=== PATIENT | male | born 1990 | race Caucasian/White ===

== ENCOUNTER 2018-06-03 12:48 | Emergency (ER) | payer MEDICAID ==
[~2018-06-03] VITALS: Ht 167.6 cm; Wt 99.8 kg
[2018-06-03] MEDS ORDERED: SODIUM CHLORIDE 0.9% 1,000 ML IV ONE ×2 (13:35)
[2018-06-03] MEDS ORDERED: PROCHLORPERAZINE EDISYLATE 5 MG/ML 2ML VIAL IV ONE (13:45)
[2018-06-03] MEDS ORDERED: LORazepam 2MG/ML-1ML VIAL IV ONE (13:45)
[2018-06-03 13:49] LABS: Basophils % (auto) 0.4 % (0.0-2.0); Eosinophils # (auto) 0.2 uL; Hemoglobin 13.5 g/dL (13.5-17.5)
[2018-06-03 13:51] LABS: Albumin 3.6 g/dL (3.4-5.0); BUN/Creatinine Ratio 21.7; Calcium 8.6 mg/dL (8.5-10.1)
[2018-06-03 13:53] LABS: Basophils # (auto) 0 uL; Eosinophils % (auto) 1.7 % (0.0-7.0); Hematocrit 40.7 % (41.0-53.0); Lymphocytes % (auto) 17.2 % (10.0-50.0); Mean Corpuscular Hemoglobin 25.6 pg (28.0-32.0); Mean Corpuscular Hgb Conc. 33.2 g/dL (32.0-36.0); Monocytes # (auto) 0.7 uL; Monocytes % (auto) 5.8 % (0.0-12.0); Neutrophils # (auto) 8.6 uL; Neutrophils % (auto) 74.9 % (37.0-80.0); Nucleated Red Blood Cells % 0.2 %; Platelet Count (auto) 338 10^3/uL (140-450); Red Blood Cells 5.28 10^6/uL (4.5-5.90); Red Cell Distribution Width 13.7 % (11.8-14.3); White Blood Cell 11.5 10^3/uL (4.4-10.8)
[2018-06-03 13:54] LABS: Bilirubin, Total 0.2 mg/dL (0.2-1.0); Total Protein 8.3 g/dL (6.4-8.2)
[2018-06-03] MEDS ORDERED: cefTRIAXone SOD 1,000 MG VL IM ONE (14:30)
[2018-06-03 16:54] VITALS: BP 123/64
== END 2018-06-03 15:56 | disposition home or self-care (01) ==
LOC: ER 12:48
DX: K52.9 Noninfective gastroenteritis and colitis, unspecified (principal); J18.9 Pneumonia, unspecified organism; F12.10 Cannabis abuse, uncomplicated; F17.210 Nicotine dependence, cigarettes, uncomplicated
CPT/HCPCS: 36415; 71046; 74176; 80053; 85025; 96361; 96372; 96374; 96375; 99284; J0696; J0780; J2060; J7030

== ENCOUNTER 2018-06-29 10:35 | Emergency (ER) | payer MEDICAID ==
[~2018-06-29] VITALS: Ht 175.3 cm; Wt 99.8 kg
[2018-06-29 10:37] VITALS: BP 131/84
== END 2018-06-29 11:08 | disposition left against medical advice (07) ==
LOC: ER 10:35
DX: G89.29 Other chronic pain (principal); M54.5 Low back pain; F17.210 Nicotine dependence, cigarettes, uncomplicated; F12.10 Cannabis abuse, uncomplicated; Z76.0 Encounter for issue of repeat prescription

== ENCOUNTER 2018-07-07 13:20 | Emergency (ER) | payer MEDICAID ==
[~2018-07-07] VITALS: Ht 175.3 cm; Wt 99.8 kg
[2018-07-07 14:06] VITALS: BP 121/77
[2018-07-07] MEDS ORDERED: LIDOCAINE 1% (LOCAL ANESTH.) PF 5ml SDV ID ONE (15:00)
[2018-07-07] MEDS ORDERED: BACITRACIN TOP OINT 1 UD PKG TOP ONE (15:00)
[2018-07-07] MEDS ORDERED: TETANUS-DIPTH-ACEL PERTUSSIS 0.5ML SYRG IM ONE (15:00)
== END 2018-07-07 15:44 | disposition home or self-care (01) ==
LOC: ER 13:24
DX: S91.312A Laceration without foreign body, left foot, initial encounter (principal); F17.210 Nicotine dependence, cigarettes, uncomplicated; F12.90 Cannabis use, unspecified, uncomplicated; W22.8XXA Striking against or struck by other objects, initial encounter; Y93.89 Activity, other specified; Y99.8 Other external cause status; Y92.89 Other specified places as the place of occurrence of the external cause
CPT/HCPCS: 12002; 73700; 90471; 90715

== ENCOUNTER 2019-01-25 17:20 | Emergency (ER) | payer MEDICAID ==
[~2019-01-25] VITALS: Ht 170.2 cm; Wt 99.8 kg
[2019-01-25] MEDS ORDERED: DexAMETHasone SOD PHOS 10MG/1ML VIAL INJ IM ONE (19:00)
[2019-01-25 19:45] VITALS: BP 118/62
== END 2019-01-25 19:46 | disposition home or self-care (01) ==
LOC: ER 17:20
DX: J30.9 Allergic rhinitis, unspecified (principal); H65.93 Unspecified nonsuppurative otitis media, bilateral; F17.210 Nicotine dependence, cigarettes, uncomplicated; F12.90 Cannabis use, unspecified, uncomplicated
CPT/HCPCS: 96372; 99283; J1100

== ENCOUNTER 2019-03-12 18:36 | Emergency (ER) | payer MEDICAID ==
[~2019-03-12] VITALS: Ht 172.7 cm; Wt 97.5 kg
[2019-03-12 20:10] VITALS: BP 135/73
[2019-03-12] MEDS ORDERED: IOHEXOL 300 MG/ML 100ML BOTTLE IJ ONE (21:05)
== END 2019-03-12 22:20 | disposition left against medical advice (07) ==
LOC: ER 18:40
DX: M54.6 Pain in thoracic spine (principal); M25.561 Pain in right knee; R07.81 Pleurodynia; V89.2XXA Person injured in unspecified motor-vehicle accident, traffic, initial encounter; Y93.I9 Activity, other involving external motion; Y92.410 Unspecified street and highway as the place of occurrence of the external cause; Y99.8 Other external cause status
CPT/HCPCS: 71111; 71260; 72125; 72128; 73562; 99284; Q9967

== ENCOUNTER 2019-03-14 14:39 | Emergency (ER) | payer MEDICAID ==
[~2019-03-14] VITALS: Ht 175.3 cm; Wt 97.5 kg
[2019-03-14 14:57] VITALS: BP 125/72
== END 2019-03-14 23:56 | disposition left against medical advice (07) ==
LOC: ER 14:39
DX: R07.81 Pleurodynia (principal); Z53.21 Procedure and treatment not carried out due to patient leaving prior to being seen by health care provider

== ENCOUNTER 2019-06-09 13:39 | Emergency (ER) | payer MEDICAID ==
[~2019-06-09] VITALS: Ht 172.7 cm; Wt 88.5 kg
[2019-06-09 15:51] VITALS: BP 119/67
== END 2019-06-09 18:21 | disposition home or self-care (01) ==
LOC: ER 13:43
DX: H10.13 Acute atopic conjunctivitis, bilateral (principal); F17.210 Nicotine dependence, cigarettes, uncomplicated

== ENCOUNTER 2019-11-10 15:08 | Emergency (ER) | payer MEDICAID ==
[~2019-11-10] VITALS: Ht 177.8 cm; Wt 95.3 kg
[2019-11-10] MEDS ORDERED: methylPREDNISolone SOD SUCC 125 MG/2 ML VL IM ONE (20:15)
[2019-11-10] MEDS ORDERED: KETOROLAC TROMETH 60MG/2ML VIAL IM ONE (20:15)
[2019-11-10 20:22] VITALS: BP 142/85
== END 2019-11-10 21:24 | disposition home or self-care (01) ==
LOC: EDUNIT# 15:08 → ER 15:08 → EDBD 15:08 → ER 21:24
DX: S16.1XXA Strain of muscle, fascia and tendon at neck level, initial encounter (principal); S23.3XXA Sprain of ligaments of thoracic spine, initial encounter; N20.0 Calculus of kidney; J98.4 Other disorders of lung; M62.838 Other muscle spasm; V49.9XXA Car occupant (driver) (passenger) injured in unspecified traffic accident, initial encounter; Y93.89 Activity, other specified; Y92.488 Other paved roadways as the place of occurrence of the external cause; Y99.8 Other external cause status
CPT/HCPCS: 70450; 72125; 72128; 72131; 73030; 96372; 99285; J1885; J2930

== ENCOUNTER 2019-12-11 12:30 | Emergency (ER) | payer MEDICAID, OTHER ==
[~2019-12-11] VITALS: Ht 172.7 cm; Wt 93.0 kg
[2019-12-11] MEDS ORDERED: ASPirin 81 mg TAB PO ONE (12:45)
[2019-12-11 13:57] LABS: Basophils # (auto) 0 10 ^3/uL (0-0.2); Eosinophils # (auto) 0 10 ^3/uL (0-0.8); Eosinophils % (auto) 0.5 % (0.0-7.0); Hemoglobin 12.9 g/dL (13.5-17.5); Mean Corpuscular Hgb Conc. 33.1 g/dL (32.0-36.0); Neutrophils # (auto) 5.7 10 ^3/uL (1.6-8.6); Neutrophils % (auto) 71.6 % (37.0-80.0)
[2019-12-11 13:58] LABS: Basophils % (auto) 0.6 % (0.0-2.0); Lymphocytes # (auto) 1.7 10 ^3/uL (0.4-5.4); Lymphocytes % (auto) 21.2 % (10.0-50.0); Mean Corpuscular Volume 78.4 fL (80.0-100.0); Monocytes # (auto) 0.5 10 ^3/uL (0-1.3); Monocytes % (auto) 6.1 % (0.0-12.0); Platelet Count (auto) 254 10^3/uL (140-450); Red Blood Cells 4.98 10^6/uL (4.5-5.90); Red Cell Distribution Width 13.6 % (11.8-14.3)
[2019-12-11 14:19] LABS: Alanine Aminotransferase 49 U/L (16-61); Albumin 3.8 g/dL (3.4-5.0); Anion Gap 4 (5-15); Aspartate Aminotransferase 45 U/L (15-37); BUN/Creatinine Ratio 10.6; Blood Urea Nitrogen 10 mg/dL (7-18); Calcium 8.4 mg/dL (8.5-10.1); Carbon Dioxide 28 mmol/L (21-32); Chloride 104 mmol/L (98-107); GFR African American 124 mL/min; GFR Non-African American 102 mL/min; Glucose 79 mg/dL (74-106); Magnesium 1.9 mg/dL (1.6-2.6); Sodium 136 mmol/L (136-145)
[2019-12-11 14:24] LABS: Alkaline Phosphatase 62 U/L (45-117); Bilirubin, Total 0.2 mg/dL (0.2-1.0); Total Protein 7.8 g/dL (6.4-8.2)
[2019-12-11 14:30] LABS: INR 1.04 (0.9-1.15); Partial Thromboplastin Time 25.9 sec (23.0-31.2)
[2019-12-11 15:33] VITALS: BP 144/94
[2019-12-11] MEDS ORDERED: LORazepam 0.5 MG TAB PO ONE (15:45)
[2019-12-11 16:59] LABS: Urine Bacteria FEW /hpf (None Seen); Urine Blood Negative /uL (Negative); Urine Specific Gravity 1.005 (1.001-1.035); Urine WBC <1 /hpf (0 - 3)
[2019-12-11 17:17] LABS: Alcohol, Urine < 3.0 mg/dL (0-10); Amphetamine Screen, Urine NEGATIVE (NEGATIVE); Barbiturate Scree,Urine NEGATIVE (NEGATIVE); Benzodiazephine Screen, Urine POSITIVE (NEGATIVE); Cannabinoid Screen, Urine POSITIVE (NEGATIVE); Cocaine Screen, Urine NEGATIVE (NEGATIVE); Opiate Scree,Urine NEGATIVE (NEGATIVE); Phencyclidine Screen, Urine NEGATIVE (NEGATIVE)
== END 2019-12-11 16:47 | disposition home or self-care (01) ==
LOC: EDBD → ER 12:30
DX: R07.89 Other chest pain (principal); R00.2 Palpitations; F41.9 Anxiety disorder, unspecified; F17.210 Nicotine dependence, cigarettes, uncomplicated
CPT/HCPCS: 36415; 71045; 80053; 80307; 81001; 83735; 84443; 84484; 85025; 85379; 85610; 85730; 93005

== ENCOUNTER 2019-12-14 15:20 | Emergency (ER) | payer MEDICAID ==
[~2019-12-14] VITALS: Ht 172.7 cm; Wt 92.8 kg
[2019-12-14 15:49] VITALS: BP 137/81
[2019-12-14] MEDS ORDERED: SODIUM CHLORIDE 0.9% 1,000 ML IV ONE (16:43)
[2019-12-14] MEDS ORDERED: KETOROLAC TROMETH 30 MG/ML 1ML VIAL IV ONE (16:45)
[2019-12-14] MEDS ORDERED: ALPRAZolam 0.5 MG TAB PO ONE (16:45)
[2019-12-14 16:49] LABS: Urine WBC None Seen /hpf (0 - 3)
[2019-12-14 16:57] LABS: Urine Bacteria NONE SEEN /hpf (None Seen); Urine Blood Negative /uL (Negative); Urine Mucus FEW (None Seen); Urine Specific Gravity 1.011 (1.001-1.035)
[2019-12-14 17:11] LABS: Lymphocytes # (auto) 1.5 10 ^3/uL (0.4-5.4); Lymphocytes % (auto) 21.1 % (10.0-50.0); Monocytes # (auto) 0.5 10 ^3/uL (0-1.3); Red Cell Distribution Width 13.6 % (11.8-14.3)
[2019-12-14 17:12] LABS: Basophils # (auto) 0 10 ^3/uL (0-0.2); Basophils % (auto) 0.6 % (0.0-2.0); Eosinophils # (auto) 0.1 10 ^3/uL (0-0.8); Eosinophils % (auto) 0.8 % (0.0-7.0); Hematocrit 39.7 % (41.0-53.0); Hemoglobin 13.3 g/dL (13.5-17.5); Mean Corpuscular Hemoglobin 26.7 pg (28.0-32.0); Mean Corpuscular Hgb Conc. 33.5 g/dL (32.0-36.0); Mean Corpuscular Volume 79.8 fL (80.0-100.0); Monocytes % (auto) 6.3 % (0.0-12.0); Neutrophils # (auto) 5.1 10 ^3/uL (1.6-8.6); Neutrophils % (auto) 71.2 % (37.0-80.0); Platelet Count (auto) 249 10^3/uL (140-450); Red Blood Cells 4.98 10^6/uL (4.5-5.90); White Blood Cell 7.1 10^3/uL (4.4-10.8)
[2019-12-14 17:36] LABS: Albumin 4.2 g/dL (3.4-5.0); Calcium 9.1 mg/dL (8.5-10.1); Magnesium 2.3 mg/dL (1.6-2.6); Potassium 3.6 mmol/L (3.5-5.1)
[2019-12-14 17:41] LABS: BUN/Creatinine Ratio 19.4; Bilirubin, Total 0.3 mg/dL (0.2-1.0); Total Protein 7.9 g/dL (6.4-8.2)
== END 2019-12-14 17:52 | disposition home or self-care (01) ==
LOC: EDBD → ER 15:20
DX: F41.0 Panic disorder [episodic paroxysmal anxiety] (principal); R25.2 Cramp and spasm; F41.9 Anxiety disorder, unspecified; F32.9 Major depressive disorder, single episode, unspecified; Z87.891 Personal history of nicotine dependence
CPT/HCPCS: 36415; 80053; 81001; 83735; 84443; 85025; 96361; 96374; 99283; J1885; J7030

== ENCOUNTER 2019-12-15 21:10 | Emergency (ER) | payer MEDICAID ==
[~2019-12-15] VITALS: Ht 172.7 cm; Wt 93.0 kg
[2019-12-15] MEDS ORDERED: ALPRAZolam 0.5 MG TAB PO ONE (21:45)
[2019-12-15 23:00] VITALS: BP 115/72
== END 2019-12-15 23:42 | disposition home or self-care (01) ==
LOC: EDBD → ER 21:10
DX: F41.0 Panic disorder [episodic paroxysmal anxiety] (principal); F22 Delusional disorders

== ENCOUNTER 2019-12-16 21:29 | Emergency (ER) | payer MEDICAID ==
[~2019-12-16] VITALS: Ht 175.3 cm; Wt 91.2 kg
[2019-12-16 22:55] VITALS: BP 126/84
== END 2019-12-17 02:33 | disposition left against medical advice (07) ==
LOC: ER 21:29
DX: R06.02 Shortness of breath (principal); Z53.21 Procedure and treatment not carried out due to patient leaving prior to being seen by health care provider

== ENCOUNTER 2020-01-12 19:43 | Emergency (ER) | payer MEDICAID ==
[~2020-01-12] VITALS: Ht 172.7 cm; Wt 88.5 kg
[2020-01-13 00:28] VITALS: BP 136/86
[2020-01-13] MEDS ORDERED: ALPRAZolam 0.5 MG TAB PO ONE (00:30)
[2020-01-13] MEDS ORDERED: ACETAMINOPHEN 500 MG TAB PO ONE (00:45)
[2020-01-13] MEDS ORDERED: IBUPROFEN 800 MG TAB PO ONE (00:45)
== END 2020-01-13 01:38 | disposition home or self-care (01) ==
LOC: ER 19:46
DX: F41.0 Panic disorder [episodic paroxysmal anxiety] (principal); Z87.891 Personal history of nicotine dependence

== ENCOUNTER 2020-01-13 15:55 | Emergency (ER) | payer MEDICAID ==
[~2020-01-13] VITALS: Ht 172.7 cm; Wt 88.5 kg
[2020-01-13 16:00] VITALS: BP 133/72
[2020-01-13] MEDS ORDERED: ALPRAZolam 0.5 MG TAB PO ONE (16:00)
== END 2020-01-13 16:30 | disposition home or self-care (01) ==
LOC: ER 15:55
DX: F41.9 Anxiety disorder, unspecified (principal); F32.9 Major depressive disorder, single episode, unspecified; Z87.891 Personal history of nicotine dependence

== ENCOUNTER 2020-09-27 10:41 | Emergency (ER) | payer MEDICAID ==
[~2020-09-27] VITALS: Ht 172.7 cm; Wt 97.5 kg
[2020-09-27 12:23] VITALS: BP 151/85
[2020-09-27 12:53] LABS: Eosinophils # (auto) 0 10 ^3/uL (0-0.8); Eosinophils % (auto) 0.2 % (0.0-7.0); Monocytes # (auto) 0.4 10 ^3/uL (0-1.3); Monocytes % (auto) 4.7 % (0.0-12.0)
[2020-09-27 12:56] LABS: Basophils # (auto) 0 10 ^3/uL (0-0.2); Basophils % (auto) 0.4 % (0.0-2.0); Hemoglobin 14.8 g/dL (13.5-17.5); Lymphocytes # (auto) 1.1 10 ^3/uL (0.4-5.4); Lymphocytes % (auto) 14.4 % (10.0-50.0); Mean Corpuscular Hemoglobin 26.5 pg (28.0-32.0); Mean Corpuscular Hgb Conc. 33.8 g/dL (32.0-36.0); Mean Corpuscular Volume 78.5 fL (80.0-100.0); Neutrophils # (auto) 6.1 10 ^3/uL (1.6-8.6); Neutrophils % (auto) 80.3 % (37.0-80.0); Nucleated Red Blood Cells % 0.2 %; Red Cell Distribution Width 13.2 % (11.8-14.3); White Blood Cell 7.6 10^3/uL (4.4-10.8)
[2020-09-27] MEDS ORDERED: clonazePAM 0.5 MG TAB PO ONE (13:00)
[2020-09-27 13:17] LABS: Albumin 4.2 g/dL (3.4-5.0); Anion Gap 7 (5-15); Blood Urea Nitrogen 16 mg/dL (7-18); Carbon Dioxide 24 mmol/L (21-32); Chloride 104 mmol/L (98-107); Glucose 105 mg/dL (74-106); Potassium 4.1 mmol/L (3.5-5.1); Sodium 135 mmol/L (136-145)
[2020-09-27 13:23] LABS: Alanine Aminotransferase 50 U/L (16-61); Alkaline Phosphatase 58 U/L (45-117); Aspartate Aminotransferase 34 U/L (15-37); BUN/Creatinine Ratio 17.6; Bilirubin, Total 0.3 mg/dL (0.2-1.0); GFR African American 128 mL/min; GFR Non-African American 105 mL/min; Total Protein 8.4 g/dL (6.4-8.2)
== END 2020-09-27 14:00 | disposition home or self-care (01) ==
LOC: ER 10:41
DX: F41.0 Panic disorder [episodic paroxysmal anxiety] (principal); Z87.891 Personal history of nicotine dependence
CPT/HCPCS: 36415; 71046; 80053; 84484; 85025; 93005

== ENCOUNTER 2020-10-11 12:28 | Emergency (ER) | payer MEDICAID ==
[~2020-10-11] VITALS: Ht 172.7 cm; Wt 97.5 kg
[2020-10-11 16:30] VITALS: BP 141/72
== END 2020-10-11 17:01 | disposition home or self-care (01) ==
LOC: ER 12:28
DX: F41.9 Anxiety disorder, unspecified (principal); J02.8 Acute pharyngitis due to other specified organisms; B97.89 Other viral agents as the cause of diseases classified elsewhere; Z87.891 Personal history of nicotine dependence

== ENCOUNTER 2022-02-19 10:50 | Emergency (ER) | payer MEDICAID ==
[~2022-02-19] VITALS: Ht 172.7 cm; Wt 84.0 kg
[2022-02-19 11:10] VITALS: BP 107/75
[2022-02-19] MEDS ORDERED: NALOXONE HCL 1MG/ML 2ML SYRINGE IV ONE (11:15)
[2022-02-19] MEDS ORDERED: SODIUM CHLORIDE 0.9% 1,000 ML IV ONE ×2 (11:15)
[2022-02-19 11:29] LABS: Basophils # (auto) 0.1 10 ^3/uL (0-0.2); Basophils % (auto) 1.2 % (0.0-2.0); Eosinophils # (auto) 0.3 10 ^3/uL (0-0.8); Hemoglobin 12.3 g/dL (13.5-17.5); Lymphocytes # (auto) 2.4 10 ^3/uL (0.4-5.4); Nucleated Red Blood Cells % 0.1 %; Red Cell Distribution Width 13.8 % (11.8-14.3)
[2022-02-19 11:31] LABS: Eosinophils % (auto) 4.9 % (0.0-7.0); Hematocrit 37.3 % (41.0-53.0); Lymphocytes % (auto) 44.9 % (10.0-50.0); Mean Corpuscular Hemoglobin 26.2 pg (28.0-32.0); Mean Corpuscular Volume 79.3 fL (80.0-100.0); Monocytes # (auto) 0.4 10 ^3/uL (0-1.3); Monocytes % (auto) 7.9 % (0.0-12.0); Neutrophils # (auto) 2.2 10 ^3/uL (1.6-8.6); Neutrophils % (auto) 41.1 % (37.0-80.0); White Blood Cell 5.4 10^3/uL (4.4-10.8)
[2022-02-19 11:51] LABS: Albumin 3.8 g/dL (3.4-5.0); BUN/Creatinine Ratio 13.3; Calcium 8.9 mg/dL (8.5-10.1); Potassium 4.2 mmol/L (3.5-5.1)
[2022-02-19 11:58] LABS: Bilirubin, Total 0.2 mg/dL (0.2-1.0); Total Protein 7.4 g/dL (6.4-8.2)
== END 2022-02-19 16:58 | disposition left against medical advice (07) ==
LOC: ER 10:50 → EDBD 10:50 → ER 16:50
DX: G93.41 Metabolic encephalopathy (principal); Z87.891 Personal history of nicotine dependence
CPT/HCPCS: 36415; 70450; 80053; 80320; 82962; 84484; 85025; 93005; 96360; 99285; J7030

== ENCOUNTER 2023-02-18 04:10 | Inpatient (IN) | payer MEDICAID ==
[~2023-02-18] VITALS: Ht 177.8 cm; Wt 80.0 kg
[2023-02-18 05:37] LABS: Basophils # (auto) 0 10 ^3/uL (0-0.2); Basophils % (auto) 0.3 % (0.0-2.0); Eosinophils # (auto) 0 10 ^3/uL (0-0.8); Hemoglobin 14.6 g/dL (13.5-17.5); Lymphocytes # (auto) 1.3 10 ^3/uL (0.4-5.4)
[2023-02-18 05:40] LABS: Hematocrit 44.2 % (41.0-53.0); Lymphocytes % (auto) 11.4 % (10.0-50.0); Mean Corpuscular Hemoglobin 25.8 pg (28.0-32.0); Mean Corpuscular Volume 78.2 fL (80.0-100.0); Monocytes # (auto) 0.6 10 ^3/uL (0-1.3); Monocytes % (auto) 5.6 % (0.0-12.0); Neutrophils # (auto) 9.4 10 ^3/uL (1.6-8.6); Neutrophils % (auto) 82.7 % (37.0-80.0); Nucleated Red Blood Cells % 0.1 %; Red Blood Cells 5.65 10^6/uL (4.5-5.90); White Blood Cell 11.4 10^3/uL (4.4-10.8)
[2023-02-18 05:45] LABS: Alanine Aminotransferase 17 U/L (7-40); Alkaline Phosphatase 80 U/L (46-116); Anion Gap 14 (5-15); Aspartate Aminotransferase 16 U/L (13-40); Blood Urea Nitrogen 12 mg/dL (9-23); Calcium 10.3 mg/dL (8.7-10.4); Carbon Dioxide 19 mmol/L (20-30); Chloride 106 mmol/L (98-107); Glucose 149 mg/dL (74-106); Potassium 3.3 mmol/L (3.5-5.1); Sodium 139 mmol/L (136-145)
[2023-02-18 05:46] LABS: Albumin 5.6 g/dL (3.2-4.8); Bilirubin, Total 0.6 mg/dL (0.2-1.0); Total Protein 8.9 g/dL (5.7-8.2)
[2023-02-18] MEDS ORDERED: PANTOPRAZOLE 40 MG/10 ML VIAL INJ IV ONE ×2 (07:45→10:30)
[2023-02-18] MEDS ORDERED: SODIUM CHLORIDE 0.9% 1,000 ML IV ONE ×2 (07:45→10:30)
[2023-02-18] MEDS ORDERED: MORPHINE SULFATE 4 MG/ML SYR/VIAL IV ONE (07:45)
[2023-02-18] MEDS ORDERED: ONDANSETRON HCL 4 MG/2 ML VIAL IV ONE (07:45)
[2023-02-18 08:17] VITALS: PULSE 50; RESP 18; O2SAT 95
[2023-02-18] MEDS ORDERED: POTASSIUM EFFERVESENT TAB 25 MEQ PO ONE (08:45)
[2023-02-18 09:20] LABS: Urine Bacteria NONE SEEN /hpf (None Seen); Urine Blood Negative /uL (Negative); Urine Clarity CLOUDY (Clear); Urine Color Yellow (Yellow); Urine Mucus MODERATE (None Seen); Urine Protein, UAD 1+ (Negative); Urine Specific Gravity 1.036 (1.001-1.035); Urine Urobilinogen Normal (Negative); Urine WBC 2 /hpf (0 - 3)
[2023-02-18 09:50] VITALS: PULSE 55; RESP 20; O2SAT 97
[2023-02-18] MEDS ORDERED: POTASSIUM CHLORIDE 20 MEQ, LIDOCAINE 1% (LOCAL ANESTH.) 2 ML in SODIUM CHL 0.9% 100 ML IV ONE (10:15)
[2023-02-18] MEDS ORDERED: ACETAMINOPHEN 325 MG TAB PO PRN (10:15)
[2023-02-18] MEDS ORDERED: metroNIDAZOLE 500MG/100ML 100 ML IV ONE (10:30)
[2023-02-18] MEDS ORDERED: cefTRIAXone 1GM/50ML D5W 50 ML IV ONE (10:30)
[2023-02-18] MEDS: MORPHINE SULFATE INJ 2 MG/ml SYRG IV PRN ×3 (10:56→21:09)
[2023-02-18] MEDS: ONDANSETRON HCL 4 MG/2 ML VIAL IV PRN ×2 (10:56→18:09)
[2023-02-18] MEDS: SODIUM CHLORIDE 0.9% 1,000 ML IV SCH ×2 (12:12→20:38)
[2023-02-18] MEDS: METOCLOPRAMIDE HCL 5MG/ml INJ 2ml VIAL IV PRN (14:56)
[2023-02-18] MEDS: metroNIDAZOLE 500MG/100ML 100 ML IV SCH (21:03)
[2023-02-18 21:40] VITALS: PULSE 96; RESP 16; O2SAT 100
[2023-02-18 22:32] LABS: Amphetamine Screen, Urine Neg (NEGATIVE); Barbiturate Scree,Urine Neg (NEGATIVE); Benzodiazephine Screen, Urine Neg (NEGATIVE); Cocaine Screen, Urine Neg (NEGATIVE); Opiate Scree,Urine Pos (NEGATIVE)
[2023-02-18 22:33] LABS: Cannabinoid Screen, Urine Pos (NEGATIVE); Phencyclidine Screen, Urine Neg (NEGATIVE)
[2023-02-19] MEDS: METOCLOPRAMIDE HCL 5MG/ml INJ 2ml VIAL IV PRN ×2 (00:35→10:59)
[2023-02-19] MEDS: MORPHINE SULFATE INJ 2 MG/ml SYRG IV PRN ×3 (01:29→11:11)
[2023-02-19] MEDS: metroNIDAZOLE 500MG/100ML 100 ML IV SCH (04:33)
[2023-02-19] MEDS: SODIUM CHLORIDE 0.9% 1,000 ML IV SCH (04:33)
[2023-02-19 04:54] LABS: Basophils # (auto) 0 10 ^3/uL (0-0.2); Basophils % (auto) 0.2 % (0.0-2.0); Eosinophils # (auto) 0 10 ^3/uL (0-0.8); Hematocrit 37.7 % (41.0-53.0); Hemoglobin 12.4 g/dL (13.5-17.5); Lymphocytes # (auto) 1.8 10 ^3/uL (0.4-5.4); Lymphocytes % (auto) 15.7 % (10.0-50.0); Mean Corpuscular Hgb Conc. 32.9 g/dL (32.0-36.0); Monocytes % (auto) 8.4 % (0.0-12.0); Neutrophils # (auto) 8.6 10 ^3/uL (1.6-8.6); Neutrophils % (auto) 75.7 % (37.0-80.0); Red Blood Cells 4.77 10^6/uL (4.5-5.90); Red Cell Distribution Width 13.8 % (11.8-14.3); White Blood Cell 11.3 10^3/uL (4.4-10.8)
[2023-02-19 05:10] LABS: Alanine Aminotransferase 20 U/L (7-40); Albumin 4.5 g/dL (3.2-4.8); Alkaline Phosphatase 59 U/L (46-116); Anion Gap 10 (5-15); Aspartate Aminotransferase 41 U/L (13-40); BUN/Creatinine Ratio 12.8 (10.0-20.0); Bilirubin, Total 0.5 mg/dL (0.2-1.0); Blood Urea Nitrogen 10 mg/dL (9-23); Calcium 9.3 mg/dL (8.5-10.1); Carbon Dioxide 21 mmol/L (20-30); Chloride 111 mmol/L (98-107); Glucose 120 mg/dL (74-106); Potassium 3.3 mmol/L (3.5-5.1); Sodium 142 mmol/L (136-145)
[2023-02-19 05:11] LABS: Total Protein 7.1 g/dL (5.7-8.2)
[2023-02-19] MEDS: ONDANSETRON HCL 4 MG/2 ML VIAL IV PRN (06:26)
[2023-02-19 07:38] VITALS: TEMP 98.2
[2023-02-19 08:00] VITALS: PULSE 53; RESP 17; O2SAT 97
[2023-02-19] MEDS ORDERED: cefTRIAXone 1GM/50ML D5W 50 ML IV SCH (09:00)
[2023-02-19] MEDS ORDERED: ENOXAPARIN SOD 40 MG/0.4 ML SYRINGE SC SCH (10:00)
[2023-02-19] MEDS ORDERED: PANTOPRAZOLE 40 MG/10 ML VIAL INJ IV SCH (10:00)
[2023-02-19 11:11] VITALS: BP 122/60; PULSE 53; RESP 16
== END 2023-02-19 11:35 | disposition left against medical advice (07) | DRG 248 ==
LOC: ER 04:10 → EDBD 04:10 → OVERFLOW 10:15
PROVIDERS: ADMIT Nurse Practitioner Family; ATTEND Internal Medicine
DX: A04.72 Enterocolitis due to Clostridium difficile, not specified as recurrent (principal); D72.829 Elevated white blood cell count, unspecified; K29.70 Gastritis, unspecified, without bleeding; K52.9 Noninfective gastroenteritis and colitis, unspecified; E87.6 Hypokalemia; K21.9 Gastro-esophageal reflux disease without esophagitis; F20.9 Schizophrenia, unspecified; F31.9 Bipolar disorder, unspecified; Z53.29 Procedure and treatment not carried out because of patient's decision for other reasons; F41.9 Anxiety disorder, unspecified; Z82.49 Family history of ischemic heart disease and other diseases of the circulatory system; Z83.3 Family history of diabetes mellitus; Z87.891 Personal history of nicotine dependence
CPT/HCPCS: 36415; 74176; 80053; 80307; 81001; 83690; 83735; 84132; 84484; 85025; 87040; C9113; G0378; J0696; J2001; J2405; J3490

== ENCOUNTER 2024-08-19 23:35 | Inpatient (IN) | payer MEDICAID ==
[~2024-08-19] VITALS: Ht 175.3 cm; Wt 90.0 kg
[2024-08-19] MEDS ORDERED: NALOXONE HCL 0.4 MG/ML VIAL IV PRN (23:45)
--- NOTE | 2024-08-20 00:01 | ED.PDOC ---
Altered Mental Status HPI Comments 34-year-old male who presents with a chief complaint of altered mental status status post Narcan per EMS. Patient was found in the parking lot at [facility] with an ALOC by ehs manager's department. Patient had agonal respirations and was given a total of 12mg of Narcan. Patient is currently A&Ox1 at this time and is slightly combative per EMS. Patient had one episode of vomiting. Further history taken from patient he does not recall events prior to his arrival. He denies recreational substance abuse. Patient is currently homeless. He states he takes multiple medications daily including oxycodone, Percocet, Xanax, Remeron, Lamictal, Cogentin, Cymbalta, Naprosyn. He reports having abdominal pain for the past several days. Chief Complaint: Overdose Time Seen by MD: 23:38 Primary Care Provider: ИВАН Reviewed Notes: Medications, Allergies Allergies: Coded Allergies: NO KNOWN ALLERGIES (Unverified , 02/19/22) Home Meds Reported Medications Calcium Carbonate (Tums) 500 Mg Chw, 1000 MG PO PRN, TAB.CHEW 08/20/24 Oxycodone Hcl (OxyCONTIN ER Tablet) 20 Mg Tb, 30 MG PO PRN, TAB 25 Oxycodone W/ Acetaminophen (Percocet 5/325MG) 1 Tab Tb, 1 TAB PO QID, #120 TAB 08/20/24 Alprazolam (Xanax) 1 Mg Tab, 1 TAB PO TID, #90 TAB 25 Gabapentin (Gabapentin) 300 Mg Cap, 1 CAP PO TID, #90 CAP 5 Refills 08/20/24 Duloxetine Hcl (Cymbalta) 20 Mg Cap, 30 MG PO BID, CAP 25 Lamotrigine (Lamictal) 150 Mg Tab, 1 TAB PO BID, #60 TAB 1 Refill 08/20/24 Mirtazapine (REMERON) 30 Mg Tab, 45 MG PO DAILY, TAB 25 Cetirizine Hcl (Zyrtec Allergy) 10 Mg Cap, 10 MG PO DAILY, CAP 25 Lactulose (Lactulose) 10 Gm/15 Ml [place], 10 GM PO PRN, ML 25 Sennosides (Senna) 8.6 Mg Cap, 8.6 MG PO BID, CAP 08/20/24 Pantoprazole Sodium Sesquihydr (Protonix) 40 Mg Tab, 40 MG PO DAILY, #30 TAB 08/20/24 Sucralfate (CARAFATE) 1 Gm Tab, 1 GM OR BID, TAB 08/20/24 Methocarbamol (Methocarbamol) 500 Mg Tab, 500 MG PO TIDP, TAB 08/20/24 Naproxen (NAPROSYN TABLET) 500 Mg Tb, 1 TAB PO BID, #60 TAB 1 Refill 08/20/24 Metoprolol Succinate (Metoprolol Succinate Er) 25 Mg Tab, 1 TAB PO TIDP, #30 TAB 5 Refills 08/20/24 Information Source: Emergency Med Personnel Mode of Arrival: EMS Severity: Unable to Care for Self Timing: Minutes Duration: Since onset Prehospital treatment: Right Of Way Man, Treatment Quality: Change in Behavior Recent: Medication/Drug Abuse Vital Signs Vital Signs Date Time Temp Pulse Resp B/P (MAP) Pulse Ox O2 Delivery O2 Flow Rate FiO2 08/20/24 02:50 58 18 121/50 (73) 96 08/20/24 00:20 Room Air* 0 21 08/20/24 00:20 98.2 98.2 Physical Exam General: Patient lethargic, easily aroused,. No acute distress. Skin: Skin in warm, dry and intact without rashes or lesions. HEENT: The head is normocephalic and atraumatic. Conjunctivae are clear without exudates or hemorrhage. Sclera is non-icteric. Neck: Normal range of motion. No JVD. Cardiac: Regular rate Respiratory: No signs of respiratory distress. No Stridor. Extremities: Upper and lower extremities are atraumatic in appearance without deformity. Neurological: Speech is clear. There is no facial asymmetry. Moving all extremities spontaneously. Psychiatric: Patient is anxious Review of Systems: REVIEW OF SYSTEMS: No fever, no chills, or fatigue HEENT: No sore throat, no earache, no congestion, no neck pain. Cardiac: Positive chest pain. No palpitations. Lungs: No shortness of breath, no cough. GI: Positive nausea, positive vomiting, no diarrhea, no constipation, positive abdominal pain : No dysuria, frequency, or urgency. No hematuria. Musculoskeletal: Pause joint pain , no joint swelling, no extremity edema. Skin: No rash, no itching. Neuro: Positive headache, positive dizziness, no weakness Past Medical History PAST MEDICAL HISTORY: Anxiety, Depression, GERD, Schizophrenia Surgical History: Denies all surgeries Family History Family History: Reviewed,noncontributory to illness, Family hx of DM, Family hx of HTN Social History Smoker: Quit Less Than 1 Year, Cigarettes Alcohol: Occasionally Drugs: Marijuana Lives In: Home EKG EKG : Pulse Rate (adult): 65 Cobb: Normal Cardiac Rhythm: NSR Block: None Hypertrophy: None ST: Normal Comments Nonspecific intraventricular conduction delay; artifact in lead(s) II, III, aVR, aVL, aVF, V1, V3, V4, V5, V6 Was a procedure done? Was a procedure done?: No Differential Diagnosis (ALOC) Differential Diagnosis: Dehydration, Hypoglycemia, Encephalopathy, Hypoxemia, Seizure, Closed Head Injury, Drug Overdose, ETOH Intoxication, Renal Failure, Other X-Ray, Labs, Meds, VS Vital Signs Date Time Temp Pulse Resp B/P (MAP) Pulse Ox O2 Delivery O2 Flow Rate FiO2 08/20/24 02:50 58 18 121/50 (73) 96 08/20/24 02:45 121/50 08/20/24 01:59 65 08/20/24 01:38 65 08/20/24 01:19 131/79 08/20/24 00:20 83 16 99 Room Air* 0 21 08/20/24 00:20 98.2 83 16 107/65 (79) 99 98.2 08/19/24 23:53 98.2 90 16 95/56 (69) 98 98.2 Lab Test 08/20/24 02:46 08/20/24 00:50 08/20/24 00:40 08/20/24 00:21 Range/Units Troponin I High Sensitivity 35 19 </=54 ng/L Thyroid Stimulating Hormone (TSH) 2.32 0.55-4.78 uIU/mL Lactic Acid Level 1.5 0.4-2.0 mmol/L POC Glucose 124 H 70-106 mg/dl Urine Color Light-yellow Yellow Urine Clarity Clear Clear Urine pH 8.0 5.0-9.0 Urine Specific [place] 1.016 1.001-1.035 Urine Protein 1+ H Negative Urine Ketones Negative Negative Urine Blood Negative Negative /uL Urine Nitrite Negative Negative Urine Bilirubin Negative Negative Urine Urobilinogen Normal Negative mg/dL Urine Leukocyte Esterase Negative Negative /uL Urine RBC 2 0 - 3 /hpf Urine Microscopic WBC 1 0-3 /HPF Urine Squamous Epithelial Cells None seen <5 /hpf Urine Amorphous Crystals Few None Seen /hpf Urine Bacteria None seen None Seen /hpf Urine Glucose 2+ H Normal mg/dL Urine Opiates Screen Pos NEGATIVE Urine Fentanyl Screen Pos NEGATIVE Urine Barbiturates Screen Neg NEGATIVE Urine Phencyclidine Screen Neg NEGATIVE Urine Amphetamines Screen Neg NEGATIVE Urine Benzodiazepines Screen Pos NEGATIVE Urine Cocaine Screen Neg NEGATIVE Urine Cannabinoids Screen Pos NEGATIVE Test 08/19/24 23:56 Range/Units White Blood Count 7.4 4.4-10.8 10^3/uL Red Blood Count 4.92 4.5-5.90 10^6/uL Hemoglobin 12.5 L 13.5-17.5 g/dL Hematocrit 37.4 L 41.0-53.0 % Mean Corpuscular Volume 76.1 L 80.0-100.0 fL Mean Corpuscular Hemoglobin 25.4 L 28.0-32.0 pg Mean Corpuscular Hemoglobin Concent 33.3 32.0-36.0 g/dL Red Cell Distribution Width 15.7 H 11.8-14.3 % Platelet Count 275 140-450 10^3/uL Mean Platelet Volume 6.9 6.9-10.8 fL Neutrophils (%) (Auto) 70.6 37.0-80.0 % Lymphocytes (%) (Auto) 21.9 10.0-50.0 % Monocytes (%) (Auto) 5.6 0.0-12.0 % Eosinophils (%) (Auto) 1.3 0.0-7.0 % Basophils (%) (Auto) 0.6 0.0-2.0 % Neutrophils # (Auto) 5.2 1.6-8.6 10 ^3/uL Lymphocytes # (Auto) 1.6 0.4-5.4 10 ^3/uL Monocytes # (Auto) 0.4 0-1.3 10 ^3/uL Eosinophils # (Auto) 0.1 0-0.8 10 ^3/uL Basophils # (Auto) 0 0-0.2 10 ^3/uL Nucleated Red Blood Cells 0.0 % Sodium Level 139 136-145 mmol/L Potassium Level 4.0 3.5-5.1 mmol/L Chloride Level 105 98-107 mmol/L Carbon Dioxide Level 26 20-31 mmol/L Anion Gap 8 5-15 Blood Urea Nitrogen 17 9-23 mg/dL Creatinine 1.14 0.700-1.30 mg/dL Glomerular Filtration Rate Calc 88 >90 mL/min BUN/Creatinine Ratio 14.9 10.0-20.0 Serum Glucose 243 H 74-106 mg/dL Calcium Level 9.9 8.7-10.4 mg/dL Total Bilirubin 0.3 0.2-1.0 mg/dL Aspartate Amino Transferase (AST) 66 H 13-40 U/L Alanine Aminotransferase (ALT) 58 H 7-40 U/L Alkaline Phosphatase 62 46-116 U/L Troponin I High Sensitivity 8 </=54 ng/L Total Protein 7.7 5.7-8.2 g/dL Albumin 4.8 3.2-4.8 g/dL Lipase 30 12-53 U/L Plasma/Serum Blood Alcohol < 3.0 <10 mg/dL Current Medications Medications (Trade) Dose Ordered Sig/Real Route Start Time Stop Time Status Last Admin Sodium Chloride 1,000 ml @ 1,000 mls/hr Q1H ONCE IV 08/19/24 23:45 08/20/24 00:44 DC 08/20/24 00:28 Ondansetron HCl (Zofran) 4 mg ONCE ONCE IV 08/20/24 00:00 08/20/24 00:01 DC 08/20/24 00:28 Ketorolac Tromethamine (Toradol Injection) 15 mg ONCE ONCE IV 08/20/24 00:30 08/20/24 00:31 DC 08/20/24 00:28 Clonidine HCl (Catapres Tablet) 0.2 mg ONCE ONCE PO 08/20/24 01:15 08/20/24 01:16 DC 08/20/24 01:19 Hydroxyzine Pamoate (Vistaril Oral) 50 mg ONCE ONCE PO 08/20/24 01:15 08/20/24 01:16 DC 08/20/24 01:19 Sodium Chloride 1,000 ml @ 1,000 mls/hr Q1H ONCE IV 08/20/24 01:15 08/20/24 02:14 DC 08/20/24 01:35 Famotidine (Pepcid Injection) 20 mg ONCE ONCE IV 08/20/24 02:45 08/20/24 02:46 DC 08/20/24 02:52 PATIENT: NORI MENEZES ACCT: [id number] UNIT: [id number] : 1990 LOC: ER ROOM / BED: / AGE / SEX: 34 / M ADM STATUS: REG ER SERVICE [id number] ORDERING PHYSICIAN: RAQUEL CORREA MD PROCEDURE(s): CXR1 - CHEST XRAY 1 VIEW REASON: Opiate overdose ORDER NUMBER(s): [id number], ACCESSION NUMBER(s): [id number] CHEST RADIOGRAPH Indication: Opiate overdose Technique: Single frontal view of the chest was obtained COMPARISON: Chest x-ray 09/27/2020 FINDINGS: Lines and Tubes: None Lungs: Clear Pleura: No effusion. No pneumothorax. Cardiomediastinal contours: Unremarkable Bones: Unremarkable IMPRESSION: No abnormality demonstrated. ATED BY: CARMINE FAIRCHILD MD DICTATED DATE/TIME: 08/20/2445 SIGNED BY: CARMINE FAIRCHILD MD SIGNED DATE/TIME: 08/20/2445 PATIENT: NORI MENEZES ACCT: [id number] UNIT: [id number] : 1990 LOC: ER ROOM / BED: / AGE / SEX: 34 / M ADM STATUS: REG ER SERVICE [id number] ORDERING PHYSICIAN: RAQUEL CORREA MD PROCEDURE(s): ABPL - CT AB PEL WO CON-NO ORAL OR IV REASON: Abdominal pain ORDER NUMBER(s): [id number], ACCESSION NUMBER(s): [id number] Exam: CT CT AB PEL WO CON-NO ORAL OR IV History: Abdominal pain Comparison Study: CT CT AB PEL WO CON-NO ORAL OR IV on DOS: 02/18/23 Technique: Multidetector spiral CT of the abdomen was performed from lung bases to pubic symphysis. Imaging was performed without IV contrast. Axial, coronal and sagittal multiplanar reformats were obtained from the axial data set by the technologist. Radiation Dose : 1. Abdomen/Pelvis: CTDIvol 18.12 mGy, DLP 963.76 mGy*cm. Findings: Extensive motion artifact and beam hardening artifact from overlying leads and lines degrades detail of the study. Evaluation of solid organs is limited due to lack of intravenous contrast use. Lung Bases: No acute or significant lung base finding. Normal heart size. No pleural or pericardial effusion. Liver: The liver is normal in size. No focal lesions. Gallbladder and Biliary Tree: Unremarkable Spleen: Unremarkable Pancreas: The pancreas is grossly normal in appearance. Adrenal Glands: Unremarkable Kidneys: Kidneys are grossly normal without calculi or hydronephrosis. Bladder: Grossly unremarkable for degree of distention. Bowel: The stomach is grossly normal in appearance. Small bowel and colon are normal in caliber and distribution. Retained stool throughout the colon. The appendix is normal. Ascites: Absent Lymphadenopathy: No mesenteric, retroperitoneal or periportal lymphadenopathy. Abdominal Wall and Mesentery: Unremarkable. Vasculature: The visualized abdominal aorta is normal in size and caliber. Evaluation of abdominal and pelvic vessels is limited due to lack of intravenous contrast. Pelvic Organs: Unremarkable Musculoskeletal: No aggressive focal bony lesions, acute fractures or di slocation. IMPRESSION: 1. No acute abdominal or pelvic findings. Limited exam with degradation of detail secondary to patient motion and beam hardening artifact from lines external to the patient. 2. Retained colonic stool in a pattern of constipation. Radiation optimization: All CT scans at this facility use at least one of these dose optimization techniques: automated exposure control mA and/or kV adjustment per patient size (includes targeted exams where dose is matched to clinical indication) or iterative reconstruction. ATED BY: SALAZAR LABOY MD DICTATED DATE/TIME: 08/20/24328 SIGNED BY: SALAZAR LABOY MD SIGNED DATE/TIME: 08/20/24328 CC: Time of 1ST Reevaluation: 00:26 Reevaluation 1ST: Unchanged Patient Education/Counseling: Other (Need for admission) Family Education/Counseling: No Family Present Departure 1 Departure Time of Disposition: 03:49 Impression: Primary Impression: Opiate withdrawal Additional Impression: Abdominal pain Disposition: ADMITTED INPATIENT Condition: Stable Comments Patient admitted to hospitalist service for further treatment, evaluation and monitoring. Extensive evaluation was performed in attempt to identify or rule out: (See differential diagnosis section) The following tests were ordered, and results were reviewed by me and discussed with patient: (See diagnostic results section) The following test were independently interpreted by me: EKG I reviewed and agreed with the following test results read by other providers: N/A I reviewed the following notes from the pt's past medical encounters: N/A Additional information was gathered from interviewing the following independent historians: EMS personnel Discussion of management or test interpretation with external physician/other qualified health home care chaplain: N/A Addressed an acute or chronic illness that poses a threat to life or bodily function: Opiate withdrawal Decision regarding hospitalization or escalation of hospital level of care: Risk and benefits of admission for further treatment of patient's condition was considered. Due to patient's current clinical condition, high risk of decline and poor outcome if discharged and need for further inpatient management and monitoring, patient will be admitted to the hospital. Drug therapy requiring intensive monitoring for toxicity: N/A Parenteral controlled substances: N/A Decision regarding elective major surgery with identified patient or procedure risk factors: N/A Decision regarding emergency major surgery: N/A Decision not to resuscitate or to de-escalate care because of poor prognosis: N/A Diagnosis or treatment significantly limited by social determinants of health: Homelessness Critical Care Note Critical Care Time?: No Stability Stability form required: No Heart Score Heart Score: Heart Score Response (Comments) Value History N/A 0 EKG N/A 0 Age N/A 0 Risk Factors N/A 0 Troponin N/A 0 Total 0 I personally scribed for RAQUEL CORREA MD ([email or web address]) on 08/20/24 at 00:01. Elec tronically submitted by Chaparro Peguero ([email or web address]). I personally scribed for RAQUEL CORREA MD ([email or web address]) on 08/20/24 at 01:59. El ectronically submitted by Chaparro Peguero ([email or web address]). RAQUEL CORREA MD August 20, 2024 00:01
[2024-08-20 00:11] LABS: Basophils # (auto) 0 10 ^3/uL (0-0.2); Basophils % (auto) 0.6 % (0.0-2.0); Eosinophils # (auto) 0.1 10 ^3/uL (0-0.8); Eosinophils % (auto) 1.3 % (0.0-7.0); Monocytes # (auto) 0.4 10 ^3/uL (0-1.3)
[2024-08-20 00:13] LABS: Hematocrit 37.4 % (41.0-53.0); Hemoglobin 12.5 g/dL (13.5-17.5); Lymphocytes # (auto) 1.6 10 ^3/uL (0.4-5.4); Lymphocytes % (auto) 21.9 % (10.0-50.0); Mean Corpuscular Hemoglobin 25.4 pg (28.0-32.0); Mean Corpuscular Hgb Conc. 33.3 g/dL (32.0-36.0); Mean Corpuscular Volume 76.1 fL (80.0-100.0); Monocytes % (auto) 5.6 % (0.0-12.0); Neutrophils # (auto) 5.2 10 ^3/uL (1.6-8.6); Neutrophils % (auto) 70.6 % (37.0-80.0); Platelet Count (auto) 275 10^3/uL (140-450); Red Blood Cells 4.92 10^6/uL (4.5-5.90); Red Cell Distribution Width 15.7 % (11.8-14.3); White Blood Cell 7.4 10^3/uL (4.4-10.8)
[2024-08-20 00:20] VITALS: PULSE 83; RESP 16; O2SAT 99
[2024-08-20 00:22] LABS: Albumin 4.8 g/dL (3.2-4.8); Alkaline Phosphatase 62 U/L (46-116); Anion Gap 8 (5-15); BUN/Creatinine Ratio 14.9 (10.0-20.0); Bilirubin, Total 0.3 mg/dL (0.2-1.0); Blood Urea Nitrogen 17 mg/dL (9-23); Calcium 9.9 mg/dL (8.7-10.4); Carbon Dioxide 26 mmol/L (20-31); Chloride 105 mmol/L (98-107); Sodium 139 mmol/L (136-145); Total Protein 7.7 g/dL (5.7-8.2)
[2024-08-20 00:28] LABS: Alanine Aminotransferase 58 U/L (7-40); Aspartate Aminotransferase 66 U/L (13-40); Glucose 243 mg/dL (74-106)
[2024-08-20] MEDS: SODIUM CHLORIDE 0.9% 1,000 ML IV ONE ×2 (00:28→01:35)
[2024-08-20] MEDS: ONDANSETRON HCL 4 MG/2 ML VIAL IV ONE (00:28)
[2024-08-20] MEDS: KETOROLAC TROMETH 30 MG/ML 1ML VIAL IV ONE (00:28)
--- NOTE | 2024-08-20 00:49 | DVH ---
CHEST RADIOGRAPH Indication: Opiate overdose Technique: Single frontal view of the chest was obtained COMPARISON: Chest x-ray 09/27/2020 FINDINGS: Lines and Tubes: None Lungs: Clear Pleura: No effusion. No pneumothorax. Cardiomediastinal contours: Unremarkable Bones: Unremarkable IMPRESSION: No abnormality demonstrated.
[2024-08-20] MEDS: hydrOXYzine 25 MG TAB or CAP PO ONE (01:19)
[2024-08-20] MEDS: cloNIDine HCL 0.1 MG TAB PO ONE (01:19)
[2024-08-20 02:25] LABS: Blood Alcohol < 3.0 mg/dL (<10)
[2024-08-20 02:31] LABS: Urine Bacteria None Seen /hpf (None Seen)
[2024-08-20] MEDS: FAMOTIDINE (10MG/ML) 2ML VL IV ONE (02:52)
[2024-08-20 03:19] LABS: Urine Amorphous Crystal FEW /hpf (None Seen); Urine Blood Negative /uL (Negative); Urine Clarity Clear (Clear); Urine Color Light-Yellow (Yellow); Urine Protein, UAD 1+ (Negative); Urine Specific Gravity 1.016 (1.001-1.035); Urine Squamous Epithelial Cell None Seen /hpf (<5); Urine Urobilinogen Normal (Negative); Urine WBC 1 /HPF (0-3)
[2024-08-20 03:25] LABS: Amphetamine Screen, Urine Neg (NEGATIVE)
[2024-08-20 03:31] LABS: Barbiturate Scree,Urine Neg (NEGATIVE); Benzodiazephine Screen, Urine Pos (NEGATIVE); Opiate Scree,Urine Pos (NEGATIVE); Phencyclidine Screen, Urine Neg (NEGATIVE)
--- NOTE | 2024-08-20 03:31 | DVH ---
Exam: CT CT AB PEL WO CON-NO ORAL OR IV History: Abdominal pain Comparison Study: CT CT AB PEL WO CON-NO ORAL OR IV on DOS: 02/18/23 Technique: Multidetector spiral CT of the abdomen was performed from lung bases to pubic symphysis. I maging was performed without IV contrast. Axial, coronal and sagittal multiplanar reformats were obta ined from the axial data set by the technologist. Radiation Dose : 1. Abdomen/Pelvis: CTDIvol 18.12 mGy, DLP 963.76 mGy*cm. Findings: Extensive motion artifact and beam hardening artifact from overlying leads and lines degrades detail of the study. Evaluation of solid organs is limited due to lack of intravenous contrast use. Lung Bases: No acute or significant lung base finding. Normal heart size. No pleural or pericardial effusion. Liver: The liver is normal in size. No focal lesions. Gallbladder and Biliary Tree: Unremarkable Spleen: Unremarkable Pancreas: The pancreas is grossly normal in appearance. Adrenal Glands: Unremarkable Kidneys: Kidneys are grossly normal without calculi or hydronephrosis. Bladder: Grossly unremarkable for degree of distention. Bowel: The stomach is grossly normal in appearance. Small bowel and colon are normal in caliber and d istribution. Retained stool throughout the colon. The appendix is normal. Ascites: Absent Lymphadenopathy: No mesenteric, retroperitoneal or periportal lymphadenopathy. Abdominal Wall and Mesentery: Unremarkable. Vasculature: The visualized abdominal aorta is normal in size and caliber. Evaluation of abdominal a nd pelvic vessels is limited due to lack of intravenous contrast. Pelvic Organs: Unremarkable Musculoskeletal: No aggressive focal bony lesions, acute fractures or dislocation. IMPRESSION: 1. No acute abdominal or pelvic findings. Limited exam with degradation of detail secondary to patien t motion and beam hardening artifact from lines external to the patient. 2. Retained colonic stool in a pattern of constipation. Radiation optimization: All CT scans at this facility use at least one of these dose optimization katherine hniques: automated exposure control mA and/or kV adjustment per patient size (includes targeted exam s where dose is matched to clinical indication) or iterative reconstruction.
[2024-08-20 03:32] LABS: Cannabinoid Screen, Urine Pos (NEGATIVE); Cocaine Screen, Urine Neg (NEGATIVE)
[2024-08-20] MEDS: HALOPERIDOL LACTATE 5 MG/ML INJ VIAL IM ONE (03:48)
[2024-08-20] MEDS ORDERED: HALOPERIDOL LACTATE 5 MG/ML INJ VIAL IV PRN (05:45)
[2024-08-20] MEDS: SODIUM CHLORIDE 0.9% 1,000 ML IV SCH (05:56)
[2024-08-20] MEDS ORDERED: LACTULOSE 20Gm/30ML SOLN PO PRN (06:00)
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
[2024-08-20 07:05] LABS: Basophils # (auto) 0 10 ^3/uL (0-0.2); Basophils % (auto) 0.5 % (0.0-2.0); Eosinophils # (auto) 0 10 ^3/uL (0-0.8); Eosinophils % (auto) 0.6 % (0.0-7.0); Hematocrit 35.1 % (41.0-53.0); Hemoglobin 11.7 g/dL (13.5-17.5); Lymphocytes # (auto) 1.9 10 ^3/uL (0.4-5.4); Lymphocytes % (auto) 27.8 % (10.0-50.0); Mean Corpuscular Hemoglobin 25.5 pg (28.0-32.0); Mean Corpuscular Hgb Conc. 33.3 g/dL (32.0-36.0); Mean Corpuscular Volume 76.6 fL (80.0-100.0); Monocytes # (auto) 0.7 10 ^3/uL (0-1.3); Neutrophils # (auto) 4.1 10 ^3/uL (1.6-8.6); Neutrophils % (auto) 61.1 % (37.0-80.0); Nucleated Red Blood Cells % 0.1 %; Platelet Count (auto) 236 10^3/uL (140-450); Red Blood Cells 4.58 10^6/uL (4.5-5.90); Red Cell Distribution Width 15.4 % (11.8-14.3); White Blood Cell 6.7 10^3/uL (4.4-10.8)
--- NOTE | 2024-08-20 07:05 | ECG ---
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
[2024-08-20 07:15] LABS: Albumin 4.3 g/dL (3.2-4.8); Alkaline Phosphatase 54 U/L (46-116); Anion Gap 6 (5-15); BUN/Creatinine Ratio 19.2 (10.0-20.0); Blood Urea Nitrogen 14 mg/dL (9-23); Calcium 9.3 mg/dL (8.7-10.4); Carbon Dioxide 26 mmol/L (20-31); Glucose 91 mg/dL (74-106); Potassium 4.3 mmol/L (3.5-5.1); Sodium 142 mmol/L (136-145); Total Protein 6.9 g/dL (5.7-8.2)
[2024-08-20 07:17] LABS: Bilirubin, Total 0.4 mg/dL (0.2-1.0)
[2024-08-20 07:30] LABS: Alanine Aminotransferase 48 U/L (7-40); Aspartate Aminotransferase 47 U/L (13-40); Chloride 110 mmol/L (98-107)
[2024-08-20 08:00] VITALS: PULSE 77; RESP 14; O2SAT 100
[2024-08-20 09:37] VITALS: BP 114/81; PULSE 85; RESP 22; TEMP 97.8; O2SAT 98
[2024-08-20] MEDS ORDERED: SENN8.6C PO (12:32)
[2024-08-20] MEDS ORDERED: LACT10SO3 PO (12:32)
[2024-08-20] MEDS ORDERED: CETI10CA PO (12:32)
[2024-08-20] MEDS ORDERED: LAMO150T2 PO (12:32)
[2024-08-20] MEDS ORDERED: GABA-1250 PO (12:32)
[2024-08-20] MEDS ORDERED: DULO20CA PO (12:32)
[2024-08-20] MEDS ORDERED: NAP500T PO (12:32)
[2024-08-20] MEDS ORDERED: PANT40TA2 PO (12:32)
[2024-08-20] MEDS ORDERED: MIRT-94 PO (12:32)
[2024-08-20] MEDS ORDERED: METO25TA93 PO (12:32)
[2024-08-20] MEDS ORDERED: METH-1181 PO (12:32)
[2024-08-20] MEDS ORDERED: SUCR1TAB31 OR (12:32)
[2024-08-20] MEDS: KETOROLAC TROMETH 30 MG/ML 1ML VIAL IV PRN (13:38)
[2024-08-20 13:44] VITALS: BP 110/66; PULSE 62; RESP 14; TEMP 97.5; O2SAT 97
[2024-08-20] MEDS ORDERED: OXY20CRT PO (16:40)
[2024-08-20] MEDS ORDERED: PERCOT PO (16:40)
[2024-08-20] MEDS ORDERED: ALPR1TAB2 PO (16:40)
[2024-08-20] MEDS ORDERED: CALC500C3 PO (16:41)
[2024-08-20] MEDS ORDERED: HYDROcodone-ACET 5/325MG TAB PO PRN (16:45)
[2024-08-20 17:44] VITALS: BP 119/69; PULSE 58; RESP 13; TEMP 97.7; O2SAT 97
[2024-08-20] MEDS: ONDANSETRON HCL 4 MG/2 ML VIAL IV PRN (17:52)
[2024-08-20] MEDS: ACETAMINOPHEN 325 MG TAB PO PRN (17:52)
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
[2024-08-20 21:00] VITALS: BP 132/88; PULSE 69; RESP 18; TEMP 97.9; O2SAT 97
[2024-08-20] MEDS: DULoxetine HCL 30 MG CAP PO SCH (22:04)
[2024-08-20] MEDS: GABAPENTIN 300 MG CAP PO SCH (22:04)
[2024-08-21] VITALS (7 sets, daily range): BP systolic 124–137; BP diastolic 65–80; PULSE 43–69; RESP 17–20; TEMP 97.8–98.2; O2SAT 97–100
[2024-08-21] MEDS: MIRTAZAPINE 30 MG TAB PO SCH ×2 (09:57→21:43)
[2024-08-21] MEDS: HYDROcodone-ACET 5/325MG TAB PO PRN (10:30)
--- NOTE | 2024-08-21 13:31 | DVH ---
EXAM: XY L FOOT 2 VIEW XRAY CLINICAL INDICATION: left joint pains TECHNIQUE: XY L FOOT 2 VIEW XRAY Comparison: None FINDINGS/IMPRESSION: There is no evidence of acute fracture or dislocation. 5 mm radiopaque foreign body in the subcutaneous tissue at the level of the 2nd proximal phalanx The alignment is anatomical. There is no radiopaque foreign body.
[2024-08-21] MEDS ORDERED: PANT40TA2 PO (14:42)
[2024-08-21] MEDS ORDERED: MIRT-94 PO (14:42)
[2024-08-21] MEDS ORDERED: LAMO150T2 PO (14:42)
[2024-08-21] MEDS ORDERED: GABA-1250 PO (14:42)
[2024-08-21] MEDS ORDERED: DULO20CA PO (14:42)
[2024-08-21] MEDS ORDERED: METO25TA93 PO (14:42)
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
[2024-08-21] MEDS: lamoTRIgine 100 MG TAB PO SCH (21:43)
[2024-08-22] VITALS (8 sets, daily range): BP systolic 110–126; BP diastolic 52–76; PULSE 47–57; RESP 16–18; TEMP 98–98.9; O2SAT 96–100
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
[2024-08-22] MEDS: HYDROcodone-ACET 5/325MG TAB PO PRN (15:15)
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
[2024-08-23] VITALS (8 sets, daily range): BP systolic 115–131; BP diastolic 68–88; PULSE 47–69; RESP 18–20; TEMP 97.4–98.8; O2SAT 97–100
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
[2024-08-24] VITALS (7 sets, daily range): BP systolic 128–137; BP diastolic 74–82; PULSE 52–76; RESP 16–20; TEMP 97.3–98.6; O2SAT 97–99
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
[2024-08-24] MEDS: PANTOPRAZOLE 40 MG TAB PO SCH (12:02)
[2024-08-24] MEDS: METHOCARBAMOL 500 MG TAB PO ONE (12:02)
[2024-08-24] MEDS: METHOCARBAMOL 500 MG TAB PO PRN (21:11)
[2024-08-25] VITALS (8 sets, daily range): BP systolic 123–143; BP diastolic 70–89; PULSE 49–106; RESP 18; TEMP 97.5–98.7; O2SAT 95–100
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
[2024-08-25] MEDS: HYDROcodone-ACET 10/325MG TAB PO PRN (17:22)
[2024-08-26 01:00] VITALS: BP 107/48; PULSE 66; RESP 17; TEMP 97.7; O2SAT 94
[2024-08-26 07:58] VITALS: PULSE 77; RESP 16; O2SAT 94
[2024-08-26 08:00] VITALS: PULSE 80
[2024-08-26 09:30] VITALS: BP 129/76; PULSE 61; RESP 20; TEMP 97.9; O2SAT 97
[2024-08-26] MEDS: PNEUMOCOCCAL VACC POLYS 25 MCG/0.5 ML VIAL IM ONE (09:39)
[2024-08-26] MEDS: INFLUENZA TRIVALENT 2024-2025 0.5 ML INJ IM ONE (11:41)
[2024-08-26] MEDS ORDERED: HYDR-4798 PO (15:00)
[2024-08-26] MEDS ORDERED: METH-1181 PO (15:00)
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
== END 2024-08-26 13:00 | disposition home or self-care (01) | DRG 812 ==
LOC: EDBD 23:35 → ER 23:35 → OVERFLOW 08-20 05:31 → TELE-WESTW 08-20 21:03
PROVIDERS: ADMIT Student in an Organized Health Care Education/Training Program; ATTEND Student in an Organized Health Care Education/Training Program
DX: T40.2X1A Poisoning by other opioids, accidental (unintentional), initial encounter (principal); G92.8 Other toxic encephalopathy; F31.9 Bipolar disorder, unspecified; F11.23 Opioid dependence with withdrawal; F20.9 Schizophrenia, unspecified; G89.29 Other chronic pain; F90.9 Attention-deficit hyperactivity disorder, unspecified type; R56.9 Unspecified convulsions; K59.00 Constipation, unspecified; K21.9 Gastro-esophageal reflux disease without esophagitis; E66.3 Overweight; F19.10 Other psychoactive substance abuse, uncomplicated; F41.0 Panic disorder [episodic paroxysmal anxiety]; Z68.29 Body mass index [BMI] 29.0-29.9, adult; Z87.891 Personal history of nicotine dependence; Z59.00 Homelessness unspecified; Z79.899 Other long term (current) drug therapy; Y92.89 Other specified places as the place of occurrence of the external cause
CPT/HCPCS: 36415; 71045; 73620; 74176; 80053; 80307; 80320; 81001; 82962; 83036; 83605; 83690; 84443; 84484; 85025; 90656; 93005; G0378; J1885; J2405; J3490

== ENCOUNTER 2025-03-14 17:03 | Emergency (ER) | payer MEDICAID ==
[~2025-03-14] VITALS: Ht 177.8 cm; Wt 80.0 kg
[~2025-03-14 17:03] MED LIST: ALPR1TAB2 PO; CALC500C3 PO; CETI10CA PO; GABA-1250 PO; HYDR-4798 PO; LACT10SO3 PO; LAMO150T2 PO; METH-1181 PO; METO25TA93 PO; MIRT-94 PO; NAP500T PO; OXY20CRT PO; PANT40TA2 PO; PERCOT PO; SENN8.6C PO; SUCR1TAB31 OR
[2025-03-14 18:18] VITALS: BP 105/62; PULSE 80; RESP 16; TEMP 97.8; O2SAT 96
[2025-03-14 18:47] LABS: Urine Protein, UAD Negative (Negative)
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
== END 2025-03-14 19:26 | disposition left against medical advice (07) ==
LOC: EDBD 17:03 → ER 17:03
DX: M25.562 Pain in left knee (principal); F20.9 Schizophrenia, unspecified; F32.A Depression, unspecified; F41.9 Anxiety disorder, unspecified; Z79.899 Other long term (current) drug therapy; W18.39XA Other fall on same level, initial encounter; Y93.89 Activity, other specified; Y92.89 Other specified places as the place of occurrence of the external cause; Y99.8 Other external cause status
CPT/HCPCS: 81001